=== PATIENT | male | born 2000 | race Two or more races ===

== ENCOUNTER 2022-02-21 21:24 | Emergency (ER) | payer OTHER ==
[~2022-02-21] VITALS: Ht 167.6 cm; Wt 63.5 kg
--- NOTE | 2022-02-21 21:44 | NUR ---
Patient walked in ER with steady gait. NAD noted. A/O x3.
--- NOTE | 2022-02-21 22:10 | NUR ---
Dr. Bea at bedside. MSE in progress.
[2022-02-21] MEDS ORDERED: KETOROLAC TROMETHAMINE 60 MG INJ IM ONE (23:15)
[2022-02-21] MEDS ORDERED: DICYCLOMINE HCL LIQ 10 MG/5 ML UDC PO ONE (23:30)
[2022-02-21] MEDS ORDERED: LIDOCAINE VISCUS 2% 15 ML UDC MM ONE (23:30)
[2022-02-21] MEDS ORDERED: MAG HYDROX/AL HYDROX/SIMETH 30 ML LIQUID UDC PO ONE (23:30)
[2022-02-21 23:38] LABS: HEMATOCRIT 43.9 % (36.7-47.1); MEAN CORPUSCULAR HEMOGLOBIN 32.2 uug (23.8-33.4); MEAN CORPUSCULAR VOLUME 93.5 fL (73.0-96.2); PLATELET COUNT (AUTO) 259 K/uL (152-348)
[2022-02-21 23:43] LABS: POTASSIUM 3.5 mmol/L (3.5-5.1)
[2022-02-21 23:48] LABS: BILIRUBIN,DIRECT 0.1 mg/dL (0.0-0.2); BILIRUBIN,TOTAL 0.8 mg/dL (0.2-1.0); TOTAL PROTEIN, SERUM 7.3 g/dL (6.4-8.2)
[2022-02-21] MEDS ORDERED: DICYCLOMINE HCL LIQ 10 MG/5 ML UDC ONE (23:51)
[2022-02-21] MEDS ORDERED: MAG HYDROX/AL HYDROX/SIMETH 30 ML LIQUID UDC ONE (23:52)
[2022-02-21] MEDS ORDERED: LIDOCAINE VISCUS 2% 15 ML UDC ONE (23:52)
[2022-02-22] MEDS ORDERED: NAPR-1164 PO (01:03)
[2022-02-22] MEDS ORDERED: FAMO-132 PO (01:03)
--- NOTE | 2022-02-22 01:15 | NUR ---
Patient discharged to home in stable condition. A/O x2. NAD noted. All belongings with patient. Ambulatory with a steady gait. Written and verbal after care instructions given. Patient verbalizes understanding of instructions. Stressed follow up or return to ER for worsening s/s.
[2022-02-22 01:16] VITALS: BP 121/87
== END 2022-02-22 01:15 | disposition home or self-care (01) ==
LOC: ER 21:33
DX: R10.13 Epigastric pain (principal); G89.29 Other chronic pain; M25.562 Pain in left knee; S89.92XS Unspecified injury of left lower leg, sequela; X58.XXXS Exposure to other specified factors, sequela; F17.210 Nicotine dependence, cigarettes, uncomplicated
CPT/HCPCS: 36415; 83690; 85025; A4663